=== PATIENT | male | born 1985 | race Caucasian/White ===

== ENCOUNTER 2024-07-27 23:30 | Emergency (ER) | payer MEDICAID ==
[~2024-07-27] VITALS: Ht 182.9 cm; Wt 107.5 kg
[2024-07-28 01:48] VITALS: BP 158/114; PULSE 92; RESP 16; TEMP 97.5; O2SAT 96
[2024-08-11] MEDS ORDERED: NAPR-56 PO (18:58)
[2024-08-11] MEDS ORDERED: AMLO5TAB5 PO (18:58)
== END 2024-07-28 01:51 | disposition home or self-care (01) ==
LOC: ER 23:31
DX: S80.01XA Contusion of right knee, initial encounter (principal); Z88.0 Allergy status to penicillin; W20.8XXA Other cause of strike by thrown, projected or falling object, initial encounter; Y93.89 Activity, other specified; Y92.89 Other specified places as the place of occurrence of the external cause; Y99.8 Other external cause status
CPT/HCPCS: 73564; 99283